=== PATIENT | male | born 1980 | race Caucasian/White ===

== ENCOUNTER 2018-05-09 20:19 | Emergency (ER) | payer OTHER ==
[2018-05-09 20:32] VITALS: BP 116/71
--- NOTE | 2018-05-09 20:45 | UC ---
Dizzy HPI HPI Summary: This is yolanda Barrera documenting for attending Ethan Perez MD. 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 The patient rates the pain 0/10 in severity. Symptoms aggravated by nothing. Symptoms alleviated by nothing. Patient reports intermittent palpitations, SOB, and left arm tingling. 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 Pt reports he has similar symptoms with his arm when he falls asleep occasionally. Medications reviewed. Allergies reviewed. - History Of Current Complaint Chief Complaint: UCCardiac Stated Complaint: LIGHTHEADED Hx Obtained From: Patient Onset/Duration: Sudden Onset, Lasting Hours, Still Present Timing: Constant Severity Initially: Mild Severity Currently: Mild Pain Intensity: 0 Pain Scale Used: 0-10 Numeric Character: Lightheaded Aggravating Factor(s): Nothing Alleviating Factor(s): Nothing Associated Signs And Symptoms: Positive: SOB, Palpitations - Allergies/Home Medications Allergies/Adverse Reactions: Allergies Allergy/AdvReac Type Severity Reaction Status Date / Time ENVIRONMENTAL Allergy Eyes Uncoded 05/09/18 21:09 Itchy/Swollen/Red/Watery Home Medications: Home Medications buPROPion HCl [Wellbutrin Sr] 100 mg PO DAILY 05/09/18 [History Confirmed ] PMH/Surg Hx/FS Hx/Imm Hx Previously Healthy: No Endocrine History: Other Other Endocrine History: Negative diabetes Cardiovascular History: Other Other Cardiovascular History: Myocarditis - Surgical History Surgical History: None - Family History Known Family History: Positive: Cardiac Disease - [place] under age 50 - Social History Occupation: Employed Full-time Lives: With Family Alcohol Use: Occasionally Substance Use Type: None Smoking Status (MU): Never Smoked Tobacco - Immunization History Most Recent Tetanus Shot: unknown Review of Systems Respiratory: Shortness Of Breath Cardiovascular: Palpitations, Other - Negative CP Neurological: Other - Positive dizziness and left arm tingling All Other Systems Reviewed And Are Negative: Yes Physical Exam - Summary Physical Exam Summary: General: well-appearing, no pain distress Skin: warm, color reflects adequate perfusion, dry Head: normal Eyes: EOMI, GRETTA ENT: normal Neck: supple, nontender Respiratory: CTA, breath sounds present Cardiovascular: RRR Abdomen: soft, nontender Bowel: present Musculoskeletal: normal, strength/ROM intact Neurological: sensory/motor intact, A&O x3 Psychological: affect/mood appropriate Triage Information Reviewed: Yes Vital Signs: Initial Vital Signs Temp 97.6 F 05/09/18 20:27 Pulse 54 05/09/18 20:27 Resp 18 05/09/18 20:27 BP 116/71 05/09/18 20:27 Pulse Ox 100 05/09/18 20:27 Vital Signs Reviewed: Yes Diagnostics - EKG Cardiac Rate: Bradycardia - 52 BPM Cardiac Rhythm: Sinus: Normal - Taken at 2018. Ectopy: None EKG Comparison: Other - ST elevation in V1 trough V3. Flipped T wave in III Re-Evaluation - Re-Evaluation First Eval Re-Evaluation Time: 21:35 Change: Unchanged Comment: Discussed results and plan of care with pt Dizzy Course/Dx - Course Course Of Treatment: EKG SIMILAR TO [address]KG[address]ST PA[address] CHANEY REVIEWED THE EKGS AND DID NOT SEE A SIGNIFICANT CHANGE. WE DISCUSSED DDX AND EVAL IN THE ED, WHICH I RECOMMENDED, VERSES OUT PATIENT F/U WITH PMD AND FIRE MARSHAL WITH GOING TO ED IF WORSE. - Differential Dx/Diagnosis Provider Diagnoses: PALPITATIONS. NEAR SYNCOPE. LIGHTHEADEDNESS. DIZZINESS - Physician Notifications Discussed Patient Care With: Gavin Chaney Time Discussed With Above Provider: 21:20 Instructed by Provider To: Other - Consult with Dr. Chaney (plate driller) at 2119. He said he would review the EKG. Consult with Dr. Chaney (plate driller) at 2129. He states that there is no significant change between the current EKG and the one taken in 2009. Discharge - Sign-Out/Discharge Documenting (check all that apply): Patient Departure - Discharge Plan Condition: Stable Disposition: HOME-RECOMMEND TO ED Patient Education Materials: Heart Palpitations (ED), Near Syncope (ED), Lightheadedness (ED), Dizziness (ED) Referrals: Johan Pacheco MD [Medical Doctor] - Gavin Chaney MD [Medical Doctor] - Additional Instructions: GO TO THE EMERGENCY DEPARTMENT FOR FURTHER EVALUATION OF YOUR PALPITATIONS, LIGHTHEADEDNESS AND DIZZINESS FOLLOW UP WITH YOUR PRIMARY CARE DOCTOR AND CARDIOLOGY. GET RECHECKED FOR ANY WORSENING OF YOUR CONDITION OR QUESTIONS OR CONCERNS. - Billing Disposition and Condition Condition: STABLE Disposition: Home-Recommend to ED
[2018-05-10 11:04] LABS: ABS Basophils 0 10^3/ul (0-0.2); ABS Eosinophils 0.1 10^3/ul (0-0.6); ABS Monocytes 0.6 10^3/ul (0-0.8); ABS Neutrophils 3.6 10^3/ul (1.5-7.7); ABS Nucleated RBC 0 10^3/ul; Eosinophil % 1.8 % (0-6); Hematocrit 44 % (42-52); Hemoglobin 15.2 g/dl (14.0-18.0); Lymphocyte % 31.1 % (25-47); Mean Corpuscular HGB Conc 35 g/dl (31-36); Mean Corpuscular Hemoglobin 32 pg (27-31); Mean Corpuscular Volume 92 fL (80-94); Mean Platelet Volume 9.5 um3 (7.4-10.4); Nucleated Red Blood Cells % 0.2; Platelet Count 213 10^3/ul (150-450); Red Blood Count 4.77 10^6/ul (4.00-5.40); Red Cell Distribution Width 13 % (10.5-15); White Blood Count 6.4 10^3/ul (3.5-10.8)
[2018-05-10 11:21] LABS: EGFR Non-African American 77.8 (>60)
--- NOTE | 2018-05-10 16:01 | UC ---
- Progress Note Progress Note: CBC, CMP WNL from 05/09. TSH elevate which could represent hypothyroidism. Pt was in the ED on 05/10 for similar symptoms and f/u arrange was made with his PCP... Please call pt and make sure he is aware of labs and has PCP follow up Re-Evaluation - Re-Evaluation First Eval Re-Evaluation Time: 21:35 Change: Unchanged Comment: Discussed results and plan of care with pt Course/Dx - Provider Notifications Time Discussed With Above Provider: 21:20 Instructed by Provider To: Other - Consult with Dr. Chaney (fruit shipper) at 2119. He said he would review the EKG. Consult with Dr. Chaeny (fruit shipper) at 2129. He states that there is no significant change between the current EKG and the one taken in 2009. Discharge - Sign-Out/Discharge Documenting (check all that apply): Post-Discharge Follow Up - Discharge Plan Condition: Stable Disposition: HOME-RECOMMEND TO ED Patient Education Materials: Heart Palpitations (ED), Near Syncope (ED), Lightheadedness (ED), Dizziness (ED) Referrals: Johan Pacheco MD [Medical Doctor] - Gavin Chaney MD [Medical Doctor] - Additional Instructions: GO TO THE EMERGENCY DEPARTMENT FOR FURTHER EVALUATION OF YOUR PALPITATIONS, LIGHTHEADEDNESS AND DIZZINESS FOLLOW UP WITH YOUR PRIMARY CARE DOCTOR AND CARDIOLOGY. GET RECHECKED FOR ANY WORSENING OF YOUR CONDITION OR QUESTIONS OR CONCERNS. - Billing Disposition and Condition Condition: STABLE Disposition: Home-Recommend to ED
== END 2018-05-09 21:55 | disposition home health service (06) ==
LOC: UCEAST 20:19
DX: R00.2 Palpitations (principal); R55 Syncope and collapse; R42 Dizziness and giddiness; R94.6 Abnormal results of thyroid function studies
CPT/HCPCS: 36415; 80053; 83735; 84443; 85025; 93005; 99202; G0463

== ENCOUNTER 2018-05-10 09:33 | Emergency (ER) | payer OTHER ==
[2018-05-10 11:49] LABS: ABS Basophils 0 10^3/ul (0-0.2); ABS Eosinophils 0.1 10^3/ul (0-0.6); ABS Lymphocytes 1.3 10^3/ul (1.0-4.8); ABS Monocytes 0.6 10^3/ul (0-0.8); ABS Neutrophils 2.9 10^3/ul (1.5-7.7); ABS Nucleated RBC 0 10^3/ul; Eosinophil % 1.7 % (0-6); Hematocrit 46 % (42-52); Hemoglobin 15.8 g/dl (14.0-18.0); Lymphocyte % 27.1 % (25-47); Mean Corpuscular HGB Conc 35 g/dl (31-36); Mean Corpuscular Hemoglobin 32 pg (27-31); Mean Corpuscular Volume 92 fL (80-94); Mean Platelet Volume 8.9 um3 (7.4-10.4); Nucleated Red Blood Cells % 0.1; Platelet Count 214 10^3/ul (150-450); Red Blood Count 4.97 10^6/ul (4.00-5.40); Red Cell Distribution Width 13 % (10.5-15); White Blood Count 4.9 10^3/ul (3.5-10.8)
[2018-05-10 12:05] LABS: EGFR Non-African American 84.2 (>60)
--- NOTE | 2018-05-10 12:23 | ED ---
Dizziness - HPI Summary HPI Summary: 38 y/o male presents to the ED c/o intermittent episodes of sudden onset dizziness starting yesterday afternoon. Described as room spinning. Pt has felt dizzy all morning today. At around 18:00 yesterday, pt c/o intermittent palpitations described as "skipped beat" and "heart flutters"; pt then lost his balance and fell. Ten minutes later the pt had another episode of his "heart skipping one beat". Pt has had episodes of palpitations starting this morning and throughout the day as well. Associated sx: pt developed SOB, L arm tingling last night. Pt seen at Urgent Care last night. FHx - father has AFIB. This is scribe Ed Katja documenting for attending Barry Mclean MD - History Of Current Complaint Chief Complaint: EDDizziness Stated Complaint: DIZZINESS Time Seen by Provider: 05/10/18 12:16 Hx Obtained From: Patient Timing: Intermittent Episode Lasting Character: Room Spinning, Dizzy Aggravating Factor(s): Nothing Alleviating Factor(s): Nothing Associated Signs And Symptoms: Positive: SOB, Palpitations, Other: - L arm tingling - Allergies/Home Medications Allergies/Adverse Reactions: Allergies Allergy/AdvReac Type Severity Reaction Status Date / Time ENVIRONMENTAL Allergy Eyes Uncoded 05/09/18 21:09 Itchy/Swollen/Red/Watery PMH/Surg Hx/FS Hx/Imm Hx Previously Healthy: No Cardiovascular History: Reports: Other Cardiovascular Problems/Disorders - myocarditis 2010 Musculoskeletal History: Denies: Hx Rheumatoid Arthritis, Hx Osteoporosis Infectious Disease History: No Infectious Disease History: Denies: Traveled Outside the [place] in Last 30 Days - Family History Known Family History: Positive: Cardiac Disease - [place] under age 50 - Social History Alcohol Use: Occasionally Hx Substance Use: No Substance Use Type: Reports: None Hx Tobacco Use: Yes Smoking Status (MU): Never Smoked Tobacco Review of Systems Constitutional: Negative Eyes: Negative ENT: Negative Positive: Palpitations Positive: Shortness Of Breath Gastrointestinal: Negative Genitourinary: Negative Musculoskeletal: Negative Skin: Negative Neurological: Other - dizziness Positive: Numbness - L arm tingling Psychological: Normal All Other Systems Reviewed And Are Negative: Yes Physical Exam - Summary Physical Exam Summary: VITAL SIGNS: Reviewed. GENERAL: Patient is a well-developed and nourished male who is lying comfortable in the stretcher. Patient is not in any acute respiratory distress. HEAD AND FACE: No signs of trauma. No ecchymosis, hematomas or skull depressions. No sinus tenderness. EYES: PERRLA, EOMI x 2, No injected conjunctiva, no nystagmus. EARS: Hearing grossly intact. Ear canals and tympanic membranes are within normal limits. MOUTH: Oropharynx within normal limits. NECK: Supple, trachea is midline, no adenopathy, no JVD, no carotid bruit, no c- spine tenderness, neck with full ROM. CHEST: Symmetric, no tenderness at palpation LUNGS: Clear to auscultation bilaterally. No wheezing or crackles. CVS: Regular rate and rhythm, S1 and S2 present, no murmurs or gallops appreciated. ABDOMEN: Soft, non-tender. No signs of distention. No rebound no guarding, and no masses palpated. Bowel sounds are normal. EXTREMITIES: FROM in all major joints, no edema, no cyanosis or clubbing. NEURO: Alert and oriented x 3. No acute neurological deficits. Speech is normal and follows commands. Neurological exam intact. SKIN: Dry and warm Triage Information Reviewed: Yes Vital Signs On Initial Exam: Initial Vitals Temp Pulse Resp BP Pulse Ox 97.7 F 52 16 121/67 99 05/10/18 09:37 05/10/18 09:37 05/10/18 09:37 05/10/18 09:37 05/10/18 09:37 Vital Signs Reviewed: Yes Diagnostics - Vital Signs Vital Signs Temp Pulse Resp BP Pulse Ox 05/10/18 09:37 97.7 F 52 16 121/67 99 - Laboratory Lab Results: Lab Results 05/10/18 05/10/18 05/10/18 Range/Units 11:19 11:19 11:19 WBC 4.9 (3.5-10.8) 10^3/ul RBC 4.97 (4.00-5.40) 10^6/ul Hgb 15.8 (14.0-18.0) g/dl Hct 46 (42-52) % MCV 92 (80-94) fL MCH 32 H (27-31) pg MCHC 35 (31-36) g/dl RDW 13 (10.5-15) % Plt Count 214 (150-450) 10^3/ul MPV 8.9 (7.4-10.4) um3 Neut % (Auto) 59.0 (38-83) % Lymph % (Auto) 27.1 (25-47) % Mccormick % (Auto) 11.5 H (0-7) % Eos % (Auto) 1.7 (0-6) % Baso % (Auto) 0.7 (0-2) % Absolute Neuts (auto) 2.9 (1.5-7.7) 10^3/ul Absolute Lymphs (auto) 1.3 (1.0-4.8) 10^3/ul Absolute Monos (auto) 0.6 (0-0.8) 10^3/ul Absolute Eos (auto) 0.1 (0-0.6) 10^3/ul Absolute Basos (auto) 0 (0-0.2) 10^3/ul Absolute Nucleated RBC 0 10^3/ul Nucleated RBC % 0.1 Sodium 139 (135-145) mmol/L Potassium 4.5 (3.5-5.0) mmol/L Chloride 102 (101-111) mmol/L Carbon Dioxide 31 (22-32) mmol/L Anion Gap 6 (2-11) mmol/L BUN 17 (6-24) mg/dL Creatinine 0.99 (0.67-1.17) mg/dL Est GFR ( Amer) 101.8 (>60) Est GFR (Non-Af Amer) 84.2 (>60) BUN/Creatinine Ratio 17.2 (8-20) Glucose 68 L (70-100) mg/dL Lactic Acid 1.0 (0.5-2.0) mmol/L Calcium 9.7 (8.6-10.3) mg/dL Magnesium 2.2 (1.9-2.7) mg/dL Total Bilirubin 1.60 H (0.2-1.0) mg/dL AST 19 (13-39) U/L ALT 15 (7-52) U/L Alkaline Phosphatase 63 (34-104) U/L Troponin I 0.00 (<0.04) ng/mL Total Protein 7.8 (6.4-8.9) g/dL Albumin 4.6 (3.2-5.2) g/dL Globulin 3.2 (2-4) g/dL Albumin/Globulin Ratio 1.4 (1-3) TSH Pending Result Diagrams: 05/10/18 11:19 05/10/18 11:19 Lab Statement: Any lab studies that have been ordered have been reviewed, and results considered in the medical decision making process. - Radiology CXR Xray Interpretation: No Acute Changes - NO ACTIVE CARDIOPULMONARY DISEASE Radiology Interpretation Completed By: ED Physician - EKG 1 EKG Interpretation: SB @ 46 bpm.T wave inversion in III. No ST elevations. Dizzy Course/Dx - Course Assessment/Plan: This patient is a 38-year-old male who presents to the emergency room with a chief complaint complaint of having dizziness. He reports that over the last couple days the patient is be having this episodes where he he skipped a beat. He said he went to the urgent care where they did an EKG but he was found within normal limits. Today he continues to have the same symptoms therefore he decided to come to the emergency department. Chest x -ray impression: no acute coronary coronary disease. Blood work without a significant abnormality except for glucose of 68. EKG shows a was normal sinus rhythm without any elevations. I discussed the case with Dr. Chaney from cardiology and he recommends for the patient to be discharged home and arrange with the primary care physician an event monitor and also discharge him to see a radio station audio engineer. Dr. Chaney also recommended for the patient to be placed in the Lopressor 12.5 mg. I discussed the findings, test results with and Dr. Pacheco with the primary care physician and he agrees to arrange for the accepted monitor and follow-up with the patient. At this point I discussed the findings and test results with the patient and the plan. I also give the patient instructions that if he develops any chest pain shortness of breath. He is going to pass out to return to the emergency room immediately for further workup and management. The patient is hemodynamically stable and alert and oriented 3. - Diagnoses Provider Diagnoses: Dizziness - Provider Notifications Discussed Care Of Patient With: Gavin Chaney Time Discussed With Above Provider: 12:39 Instructed by Provider To: Other - f/u pcp and radio station audio engineer, place on event monitor Discharge - Sign-Out/Discharge Documenting (check all that apply): Patient Departure - Discharge Plan Condition: Stable Disposition: HOME Patient Education Materials: Dizziness (ED) Referrals: Johan Pacheco MD [Primary Care Provider] - 4 Days (PLEASE F/u IN 3-5 DAYS) Gavin Chaney MD [Medical Doctor] - 2 Days (PLEASE F/U in 1-2 DAYS) Additional Instructions: RETURN FOR CHANGING/WORSENING SYMPTOMS
[2018-05-10 13:48] LABS: Urine Appearance Clear; Urine Blood Negative (Negative); Urine Color Yellow; Urine Ketones Negative (Negative); Urine Protein Negative (Negative); Urine Red Blood Cell Trace(0-2/hpf) (Absent); Urine Specific Gravity 1.008 (1.010-1.030); Urine Urobilinogen Negative (Negative); Urine White Blood Cell Trace(0-5/hpf) (Absent)
--- NOTE | 2018-05-10 13:57 | RAD ---
INDICATION: Dizziness COMPARISON: May 06, 2010 TECHNIQUE: PA and lateral dual-energy views were obtained. FINDINGS: Bones/Soft Tissues: There are no acute bony findings. Cardiomediastinal: The cardiomediastinal silhouette is normal. Lungs: There are no infiltrates. Pleura: There are no pleural effusions. Other: None IMPRESSION: NORMAL CHEST.
[2018-05-10 14:09] VITALS: BP 110/78
== END 2018-05-10 14:09 | disposition home or self-care (01) ==
LOC: ED 09:33
DX: R42 Dizziness and giddiness (principal); R06.02 Shortness of breath; R00.1 Bradycardia, unspecified
CPT/HCPCS: 36415; 71046; 80053; 81003; 81015; 83605; 83735; 84443; 84484; 85025; 87086; 93005; 99282